=== PATIENT | male | born 1975 | race Two or more races ===

== ENCOUNTER 2022-05-17 12:06 | Emergency (ER) | payer OTHER, SELFPAY ==
--- NOTE | ~2022-05-17 | XR_ITS ---
EXAMINATION: XR CHEST CLINICAL INFORMATION: Wheezing/coughing with shortness of breath COMPARISON: None TECHNIQUE: 2 views of the chest were obtained. FINDINGS: No significant abnormality is noted involving the heart, lungs, mediastinum, bony thorax or soft tissues. XR/XR chest 2V IMPRESSION: Unremarkable examination.
[2022-05-17 12:10] VITALS: BP 136/90; PULSE 85; RESP 24; TEMP 36.6; O2SAT 94; BMI 51.7
[2022-05-17 13:28] LABS: COVID-19 Test Negative (Negative); IDNOW Serial# 9DB6401D; Influenza A Negative (Negative); Influenza B2 Negative (Negative)
--- NOTE | 2022-05-17 13:29 | ED_ITS ---
HPI - SOB/Dyspnea General Chief Complaint: Dyspnea Stated Complaint: ashtma Time Seen by Provider: 05/17/22 12:49 Source: patient and family Mode of arrival: ambulatory Limitations: no limitations and language barrier History of Present Illness HPI Narrative: 46-year-old male with a history of [id number] diabetes, asthma here with 3 days of cough and wheezing. No fevers, chills, chest pain, leg swelling leg pain. Patient does report shortness of breath with his coughing. Patient is using his albuterol home with continued symptoms. Patient had 2 COVID vaccination Related Data Previous Rx's Medication Instructions Recorded albuterol sulfate 2.5 mg (3 mL) inhalation Q4H PRN 05/17/22 shortness of breath or wheezing #90 mL nebulizers (Aeroneb Go Nebulizer) #1 ea 05/17/22 prednisone 20 mg tablet 20 mg PO DAILY #7 tabs 05/17/22 Allergies Allergy/AdvReac Type Severity Reaction Status Date / Time No Known Allergies Allergy Unverified 08/13/20 18:28 Review of Systems Review of Systems: Yes all other systems are reviewed and are negative Constitutional: Constitutional: Reports no additional constitutional complaints, Denies body ache(s), Denies chills, Denies fever(s), Denies headache(s) and Denies weakness Eyes: Eyes: Reports no additional eye complaints and Denies change in vision ENT: Reports system reviewed and no additional complaints, except as documented, Denies dizziness, Denies headache(s), Denies nasal congestion, Denies nasal discharge and Denies neck pain Cardiovascular: Cardiovascular: Reports no additional cardiovascular complaints, Denies chest pain, Denies leg edema and Reports dyspnea Respiratory: Respiratory: Reports no additional respiratory complaints, Reports cough, Reports dyspnea and Reports wheezing Gastrointestinal: Gastrointestinal: Reports no additional gastrointestinal complaints, Denies abdominal pain, Denies diarrhea, Denies nausea and Denies vomiting Genitourinary: Genitourinary: Denies urinary incontinence Musculoskeletal: Musculoskeletal: Reports no additional musculoskeletal complaints, Denies back pain, Denies arthralgias, Denies joint swelling, Denies neck pain, Denies numbness and Denies tingling Integumentary/Breasts: Skin/Breast: Reports system reviewed and no additional complaints, except as docu and Denies rash Neurologic: Reports system reviewed and no additional complaints, except as documented, Denies Abnormal speech present, Denies dizziness, Denies headache(s), Denies numbness, Denies tingling and Denies weakness Allergic/Immunologic: Allergic/Immunologic: Reports wheezing PMFSH Past Medical History Attestation statement: The following information was validated with the patient. Source: old records reviewed and nursing notes reviewed Social History Social History Advance Directives: No Advance Directives Information Provided: Yes Physical Exam Vital Signs: Vital Signs: Last Vital Signs Temp 98 F 05/17/22 12:10 Pulse 88 05/17/22 14:14 Resp 18 05/17/22 14:14 BP 127/85 05/17/22 14:14 Pulse Ox 99 05/17/22 15:23 O2 Del Method 05/17/22 15:23 BMI result Body Mass Index 51.7 Const: General: cooperative, healthy appearing, comfortable and no acute distress Orientation/consciousness: patient oriented x3 Limitations: no limitations HEENT: Head: Yes normal to inspection Ears: hearing grossly normal bilaterally and TM's normal bilaterally General nose exam: Normal external nose present Face and sinus: Yes normal facial exam Mouth: Normal oral and palatal mucosa present Throat: Yes posterior oropharynx normal, Yes tonsils normal and Yes uvula midline Eyes: General: appearance normal, both eyes and all related structures Pupils: Equal, round and reactive pupils present Neck: Neck: Yes normal visual inspection, Yes full ROM, Yes no lymphadenopathy and Yes no meningeal signs Chest: Chest palpation & inspection: normal inspection of the chest Resp: Other: Expiratory wheezing throughout Effort & Inspection: normal respiratory effort Cardio: Rate: regular rate Rhythm: regular rhythm Peripheral pulses: Peripheral pulses 2+ throughout GI: Inspection: Yes normal to inspection Palpation (GI): Soft to palpation and nontender Auscultation: normal bowel sounds Back/Spine/Pelvis: Thoracic/Lumbar Spine: thoracic and lumbar spine normal to inspection Skin: General skin exam: no rashes or lesions noted Neuro: General: patient oriented x3, no meningeal signs, no focal motor deficits and normal sensation to monofilament Cranial nerves: Yes Equal, round and reactive pupils present Cognition (Neuro): normal cognition Speech: No Abnormal speech present Gait exam (Neuro): Normal gait present Motor exam (neuro): 5/5 motor strength present throughout Extrem: General: Yes normal to inspection Course Course Course Narrative: Chest x-ray shows no acute finding. Flu and COVID testing are negative. I re- examined the patient post DuoNeb. He has a mild expiratory wheezing in the bases but overall is improved. His oxygen saturation 99% on room air. I will send him home with albuterol. I will also send with a low-dose prednisone. He is aware he needs to check his blood sugars all being on prednisone it may cause his blood sugar to be elevated. Reviewed worrisome signs and symptoms of when to return to the emergency department. Comfortable discharge home. MDM - SOB/Dyspnea MDM Narrative Medical decision making narrative: This is a 46-year-old male with a known history of asthma here with cough and wheezing for 3 days unrelieved with home albuterol. On arrival patient has expiratory wheezing throughout. Is mild tachypnea and oxygen saturations are 93-94%. This is from chronic lung disease and not infection. Will check COVID and flu testing, chest x-ray. Will give DuoNeb and reassess Differential Diagnosis Differential diagnosis: Likely asthma with exacerbation Medical Records Attestation: I reviewed the patient's medical records. Lab Data Attestation: I reviewed the patient's lab results. Labs: Lab Results 05/17/22 05/17/22 Range/Units 13:02 13:02 COVID-19 (SRINATH) Negative (Negative) COVID-19 Clin Com See Note Influenza Type A (SOBIA) Negative (Negative) Influenza Type B (SOBIA) Negative (Negative) Influenza A & B Note See Note Imaging Data Chest x-ray: Attestation: I personally reviewed and interpreted this imaging study as follows: Radiologist's impression: cc: Kortney Morley MUSICAL INSTRUMENT SUPERVISOR~ EXAMINATION: XR CHEST CLINICAL INFORMATION: Wheezing/coughing with shortness of breath COMPARISON: None TECHNIQUE: 2 views of the chest were obtained. FINDINGS: No significant abnormality is noted involving the heart, lungs, mediastinum, bony thorax or soft tissues. XR/XR chest 2V IMPRESSION: Unremarkable examination. Discharge Plan Discharge Clinical Impression: Asthma with exacerbation Patient Disposition: Home, Self-Care Instructions: Asthma (ED) Additional Instructions: Be aware that taking prednisone will cause your blood sugar to be elevated. Please check your blood sugar daily. Comes to the emergency room if your blood sugar is greater than 400 Continue your home medication Testing for flu and COVID are negative Chest x-ray is normal Prescriptions: New prednisone 20 mg tablet 20 mg PO DAILY Qty: 7 0RF (DME) Aeroneb Go Nebulizer Misc See Rx Instructions .Route Qty: 1 0RF Rx Instructions: As directed albuterol sulfate 2.5 mg /3 mL (0.083 %) solution for nebulization 2.5 mg inhalation Q4H PRN (Reason: shortness of breath or wheezing) Qty: 90 0RF Referrals: Mylene Jasso MD [Primary Care Provider] - 1 week Interventions: ED Discharge Assessment Last Done: 05/17/22 15:36 Discharge Date/Time: 05/17/22 15:36 Print Language: Setswana
[2022-05-17 13:38] VITALS: PULSE 77; RESP 16; O2SAT 98
[2022-05-17] MEDS: Albuterol/Iprat 2.5/0.5MG 3 ML AMPUL.NEB INHALE (13:38)
[2022-05-17 14:14] VITALS: BP 127/85; PULSE 88; RESP 18; O2SAT 92
[2022-05-17 15:23] VITALS: O2SAT 99
== END 2022-05-17 15:36 | disposition home or self-care (01) ==
PROVIDERS: Nurse Practitioner Family; Emergency Provider Emergency Medicine; PCP Student in an Organized Health Care Education/Training Program
DX: J45.901 Unspecified asthma with (acute) exacerbation (principal); R06.00 Dyspnea, unspecified; E11.9 Type 2 diabetes mellitus without complications; R05.9 Cough, unspecified; Z79.4 Long term (current) use of insulin; Z20.822 Contact with and (suspected) exposure to COVID-19; Z79.899 Other long term (current) drug therapy
CPT/HCPCS: 71046; 87502; 87635; 94640; 99284

== ENCOUNTER 2023-12-07 09:30 | Emergency (ER) | payer OTHER, SELFPAY ==
[2023-12-07 09:37] VITALS: BP 178/105; PULSE 83; RESP 19; TEMP 36.6; O2SAT 96; BMI 48.8
--- NOTE | 2023-12-07 10:16 | ED_ITS ---
HPI - Dental/Oral General Chief complaint: Dental/Oral Stated complaint: dental pain Time Seen by Provider: 12/07/23 09:57 Source: patient Mode of arrival: ambulatory Limitations: no limitations History of Present Illness HPI Narrative: 47 year old male with pmhx significant for asthma presents to the ED today for evaluation of dental pain x2 days. Pain is isolated to the right upper molar. Describes pain as a stabbing sensation. Pain radiates down right neck. Has not taken anything for pain at home. Denies fever, chills, difficulty swallowing or speaking, discharge from the tooth. Has not seen a dentist in years. Related Data Previous Rx's Medication Instructions Recorded albuterol sulfate 2.5 mg/3 mL 2.5 mg (3 mL) inhalation Q4H PRN 05/17/22 (0.083 %) solution for nebulization shortness of breath or wheezing #90 mL nebulizers (Aeroneb Go Nebulizer) #1 ea 05/17/22 prednisone 20 mg tablet 20 mg PO DAILY #7 tabs 05/17/22 amoxicillin 875 mg-potassium 1 tab PO BID 14 days #28 tabs 12/07/23 clavulanate 125 mg tablet hydrocodone 5 mg-acetaminophen 325 1 tab PO BEDTIME PRN pain (scale 12/07/23 mg tablet score 7-10) #3 tabs naproxen 500 mg tablet 500 mg PO Q8-12H PRN pain (scale 12/07/23 score 4-6) #20 tabs ondansetron 4 mg disintegrating 4 mg PO DAILY PRN nausea and 12/07/23 tablet vomiting 5 days #10 tabs Allergies Allergy/AdvReac Type Severity Reaction Status Date / Time No Known Allergies Allergy Verified 12/07/23 09:37 Review of Systems Review of Systems: Constitutional: No fever, chills, fatigue, night sweats, weight changes ENT/Mouth: No ear pain, hearing loss, nasal congestion, sinus pain, rhinorrhea, No sore throat, odynophagia, dysphagia, +dental pain Eyes: No eye pain, swelling, redness, vision changes, discharge Cardio: No chest pain, palpitations, MILLER, orthopnea, peripheral edema Pulm: No SOB, cough, sputum, wheezing, dyspnea, hemoptysis GI: No nausea, vomiting, hematemesis, abdominal pain, diarrhea, constipation, hematochezia, melena : No irregular bleeding, dysuria, frequency, urgency, hesitancy, hematuria, flank pain MSK: No back pain, neck pain, joint pain, myalgias Skin: No lesions, rashes Neuro: No weakness, numbness, paresthesias, LOC, dizziness, headache All other systems reviewed and are negative. [facility] Past Medical History Attestation statement: The following information was validated with the patient. Source: old records reviewed and nursing notes reviewed Onset Date is defined in the Problem List Problems that require an onset date and time if occurred within 24 hrs of arrival to the ED Aortic Dissection and Rupture; Neurologic impairment; Cardiopulmonary Arrest; Endotracheal Intubation; Insertion or Replacement of Mechanical Circulatory Assist Device Social History Social History Advance Directives: No Physical Exam Vital Signs: Vital Signs: Last Vital Signs Temp 98 F 12/07/23 09:37 Pulse 83 12/07/23 09:37 Resp 19 12/07/23 09:37 BP 178/105 H 12/07/23 09:37 Pulse Ox 96 12/07/23 09:37 O2 Del Method Room Air 12/07/23 09:37 BMI result Body Mass Index 48.8 Patient hypertensive to 178/105 likely secondary to pain. Vitals otherwise WNL. Const: Other: + rocking back and forth on chair in karmen n General: cooperative, healthy appearing, no acute distress, alert and awake Nutritional Appearance: obese Orientation/consciousness: patient oriented x3 Limitations: no limitations HEENT: Other: + No facial edema. Tongue and lips wnl + multiple dental caries and poor dentit ion. right upper 2nd and 3rd molar with localized periapical swelling to the buccal and lingual ginginva. No obvious abscess. No pointing. No active bleeding/ discharge. TTP. No palpable fluctuance. + No edema to buccal mucosa + Posterior oropharynx without erythema/ edema. Uvula midline. Controlling secretions and speaking in complete sentences + No submandublar or submental LAD + No cervical LAD Head: Yes normal to inspection, Yes normocephalic and Yes atraumatic Ears: hearing grossly normal bilaterally, external ears normal, TM's normal bilaterally, EAC's normal, mastoids normal and no periauricular adenopathy General nose exam: Normal external nose present and No nasal discharge present Face and sinus: Yes normal facial exam and Yes sinuses nontender Eyes: General: appearance normal, both eyes and all related structures Pupils: Equal, round and reactive pupils present Neck: Neck: Yes normal visual inspection and Yes full ROM Resp: Effort & Inspection: normal respiratory effort and able to speak in complete sentences Auscultation: clear to auscultation bilaterally Cardio: Rate: regular rate Rhythm: regular rhythm Skin: General skin exam: no rashes or lesions noted Neuro: General: patient oriented x3, gait normal and moves all extremities Cranial nerves: Yes Equal, round and reactive pupils present Extrem: General: Yes normal to inspection Course Course Course Narrative: Patient has suspected dental infection of the 2nd and 3rd right upper molars. There are no signs of abscess or palpable fluctuance that would warrant drainage. There is no concerns for Thony's angina and imaging is not warranted at this time as it would not frame changer. He is afebrile. Will give him a dose of Toradol in the ED today. Will send him home with Augmentin, naproxen and 3 tabs of [place] for pain control as we are out of lolicaine. 1025-- he reports pain improvement with Toradol. He is no longer rocking back and forth in pain. Patient has remained stable throughout ED visit today. Discussed worrisome signs symptoms of when to return to the ED. Provided patient with list of dentists to call today and stressed importance of making an appointment. All questions answered at this time. Patient is agreeable with disposition and stable for discharge. Medications Administered Discontinued Medications Generic Name Dose Route Start Last Admin Trade Name Napoleonq PRN Reason Stop Dose Admin Ketorolac Tromethamine 60 mg 12/07/23 10:14 12/07/23 10:17 Ketorolac Tromethamine 60 Mg/2 Ml Vial IM 12/07/23 10:15 60 mg ONCE ONE Administration Medical Decision Making Medical Decision Making [facility] Narrative: 47-year-old male with pmhx significant for asthma presents to the ED today for evaluation of dental pain x2 days. Vital signs notable for hypertension, otherwise WNL. Afebrile. Nontoxic appearing in no acute distress. Rocking back and forth in exam chair due to pain. On exam there are multiple dental caries and poor dentition. right upper 2nd and 3rd molar with localized periapical swelling to the buccal and lingual ginginva. No obvious abscess. No pointing. No active bleeding/ discharge. TTP. No palpable fluctuance. No edema to buccal mucosa. Posterior oropharynx without erythema/edema. Uvula midline. Airway patent. Controlling secretions and speaking in complete sentences. No cervical, submandublar or submental LAD. Clinical concern for dental/ periapical abscess/infection, apthous stomatitis. Unlikely mono, herpes, sialadenitis, sialolithiasis, METERS SUPERINTENDENT, retropharyngeal abscess, deep neck infection, osteomyelitis, facial cellulitis/ abscess, lymphoma, ludwigs angina Differential Diagnosis Differential Diagnoses: The differential diagnosis associated with the p resentation includes as above. Admission/Observation Not indicated External Record Review External record reviewed: Inpatient record Tests considered The following testing was considered but not selected: I considered obtaining CT facial bones however no visible or palpable abscess, no extension into neck, not warranted at this time. Prescription Management I considered prescription management with: Pain Medication and Antibiotic Chronic Conditions Patient?s care impacted by: Other (Dental bharati) Social Determinants Patient?s care significantly limited by Social Determinants of Health including: Other Social Determinant of Health Critical Care Time Critical Care Time Critical Care Time: No Discharge Plan Discharge Clinical Impression: Dental caries, Toothache Patient Disposition: Home, Self-Care Instructions: Toothache (ED), Tooth Extraction (DC) Additional Instructions: You have a dental infection of your upper molar. Augmentin is an antibiotic that has been sent to your pharmacy. Take this as directed over the next 14 days. Do not skip any doses or finish she has early as may cause infection to worsen or return. Naproxen is a pain medication that has been sent to your pharmacy. Take this as needed for dental pain. Do not take this with other NSAIDs such as ibuprofen as this may cause increased risk of GI bleed. [place] is a narcotic pain medication has been sent to your pharmacy. Take this only as needed for severe pain. YOU NEED TO FOLLOW UP WITH A DENTIST THIS WEEK. YOU HAVE BEEN AND WITH CONTACT INFORMATION. YOU NEED TO CALL THEM. THEY WILL NOT CALL YOU. If you began having difficulty swallowing or feel as though your symptoms are worsening despite treatment. The case of emergency call 911. Prescriptions: New amoxicillin-pot clavulanate 875-125 mg tablet 1 tab PO BID 14 Days Qty: 28 0RF hydrocodone-acetaminophen 5-325 mg tablet 1 tab PO BEDTIME PRN (Reason: pain (scale score 7-10)) Qty: 3 0RF Rx Instructions: Partial Fill upon patient request. naproxen 500 mg tablet 500 mg PO Q8-12H PRN (Reason: pain (scale score 4-6)) Qty: 20 0RF ondansetron 4 mg tablet,disintegrating 4 mg PO DAILY PRN (Reason: nausea and vomiting) 5 Days Qty: 10 0RF No Action prednisone 20 mg tablet 20 mg PO DAILY Qty: 7 0RF (DME) Aeroneb Go Nebulizer Misc See Rx Instructions .Route Qty: 1 0RF Rx Instructions: As directed albuterol sulfate 2.5 mg /3 mL (0.083 %) solution for nebulization 2.5 mg inhalation Q4H PRN (Reason: shortness of breath or wheezing) Qty: 90 0RF Referrals: Rajat Soto, ABRAHAM [Dentist] - Ney Barajas, ABRAHAM [Dentist] - Adelaida Thibodeaux, ABRAHAM [Dentist] - Carlos Baez, DMD [Physician] - Mathew Norman DDS [Physician] - Colin Forbes, ABRAHAM [Dentist] - Dariel Bliss, ABRAHAM [Physician] - Haile Cast MD [Physician] - Stand Alone Forms: Work/School Release Interventions: ED Discharge Assessment Last Done: 12/07/23 10:33 Discharge Date/Time: 12/07/23 10:35
[2023-12-07] MEDS: Ketorolac Tromethamine 60 MG/2 ML VIAL IM (10:17)
== END 2023-12-07 10:35 | disposition home or self-care (01) ==
PROVIDERS: Emergency Provider Emergency Medicine
DX: K02.9 Dental caries, unspecified (principal); K08.89 Other specified disorders of teeth and supporting structures; I10 Essential (primary) hypertension
CPT/HCPCS: 96372; 99283; 99284; J1885

== ENCOUNTER 2025-07-12 11:48 | Emergency (ER) | payer OTHER, SELFPAY ==
--- NOTE | ~2025-07-12 | XR_ITS ---
CLINICAL HISTORY: left shoulder pain x 3 weeks 4 view left shoulder Comparison: None provided Findings: Bones intact. No dislocations. Minor arthritic changes. No significant degenerative spurring. No erosions. No radiopaque foreign body. IMPRESSION: No acute fracture or dislocation. This document has been electronically signed by: Gemma Cadena DO on 07/12/2025 13:30:41
[2025-07-12 11:50] VITALS: BP 151/93; PULSE 83; RESP 16; TEMP 36.4; O2SAT 94; BMI 39.5
--- NOTE | 2025-07-12 11:52 | ED.UPPEXIN ---
HPI - Extremity Injury (Upper) General Chief Complaint: Extremity Injury, Upper Stated Complaint: l shoulder pain Time Seen by Provider: 07/12/25 12:07 Source: patient and RN notes reviewed Mode of arrival: ambulatory Limitations: no limitations History of Present Illness ED Provider: Marisol Davis PA-C HPI narrative: This is a [id number], with a past medical history of diabetes and asthma, who presents to the ER with complaints of left shoulder pain x 3 weeks. Reports that he was on vacation in [place] and was swimming a lot in the next day he felt pain in his left shoulder. He states that the pain has been constant, worsens with movement and with palpation. He has been taking Tylenol for his symptoms which has provided him with limited relief. States that he previously injured his left shoulder while playing baseball when he was younger however this self-resolved temp without any intervention or follow-up. Denies any chest pain or shortness of breath. Denies any other complaints or concerns at this time. MD complaint: injury to: left and shoulder Onset (ago): week(s) Other injuries: none Handedness: right Relieving factors: none Exacerbating factors: none Context: injury Related Data Previous Rx's ?Medication ?Instructions ?Recorded albuterol sulfate 2.5 mg/3 mL 2.5 mg (3 mL) inhalation Q4H PRN 05/17/22 (0.083 %) solution for nebulization shortness of breath or wheezing #90 mL nebulizers (Aeroneb Go Nebulizer) #1 ea 05/17/22 prednisone 20 mg tablet 20 mg PO DAILY #7 tabs 05/17/22 amoxicillin 875 mg-potassium 1 tab PO BID 14 days #28 tabs 12/07/23 clavulanate 125 mg tablet hydrocodone 5 mg-acetaminophen 325 1 tab PO BEDTIME PRN pain (scale 12/07/23 mg tablet score 7-10) #3 tabs naproxen 500 mg tablet 500 mg PO Q8-12H PRN pain (scale 12/07/23 score 4-6) #20 tabs ondansetron 4 mg disintegrating 4 mg PO DAILY PRN nausea and 12/07/23 tablet vomiting 5 days #10 tabs naproxen 500 mg tablet 500 mg PO BID 7 days #14 tabs 07/12/25 Allergies Allergy/AdvReac Type Severity Reaction Status Date / Time No Known Allergies Allergy Verified 07/12/25 11:53 Review of Systems Review of Systems: Yes all other systems are reviewed and are negative Constitutional: Constitutional: Reports as per [facility] Past Medical History Attestation statement: The following information was validated with the patient. Social History Social History Advance Directives: No Advance Directives Information Provided: Yes Physical Exam Vital Signs: Vital Signs: Last Vital Signs Temp 97.6 F 07/12/25 11:50 Pulse 83 07/12/25 11:50 Resp 16 07/12/25 11:50 BP 151/93 H 07/12/25 11:50 Pulse Ox 94 07/12/25 11:50 O2 Del Method Room Air 07/12/25 11:50 BMI result Body Mass Index 39.5 Const: General: cooperative, comfortable and no acute distress Orientation/consciousness: patient oriented x3 Limitations: no limitations HEENT: Head: Yes normal to inspection, Yes normocephalic and Yes atraumatic Ears: hearing grossly normal bilaterally General nose exam: Normal external nose present Face and sinus: Yes normal facial exam Mouth: Normal oral and palatal mucosa present, oropharynx normal and moist mucous membranes Throat: Yes posterior oropharynx normal Eyes: General: appearance normal, both eyes and all related structures Eyelids: Yes eyelids normal Conjunctivae: conjunctivae normal Sclerae: sclerae normal Pupils: Equal, round and reactive pupils present EOM: EOMs intact bilaterally Neck: Neck: Yes normal visual inspection, Yes full ROM and Yes no lymphadenopathy Lymphatic: no lymphadenopathy noted Chest: Chest palpation & inspection: normal inspection of the chest Resp: Effort & Inspection: normal respiratory effort and able to speak in complete sentences Auscultation: clear to auscultation bilaterally, no crackles, no rales, no rhonchi and no wheezes Cardio: Rate: regular rate Rhythm: regular rhythm Heart sounds: S1 normal heart sound present and S2 normal heart sound present GI: Inspection: Yes normal to inspection Skin: General skin exam: no rashes or lesions noted Trauma: no lacerations or abrasions Wounds: no wounds Neuro: General: patient oriented x3 and moves all extremities Cranial nerves: Yes Equal, round and reactive pupils present Extrem: Other: Left shoulder with diffuse tenderness throughout pain with abduction to approximally 90?, strong radial pulse. Negative lift-off, negative drop-arm, positive empty can test sensation intact. General: Yes normal to inspection Right upper extremity: normal to inspection Left upper extremity: normal to inspection Right lower extremity: normal to inspection Left lower extremity: normal to inspection Course Course Course Narrative: Kortney Green ARTIST'S REPRESENTATIVE 07/12 1152 This is a rapid medical exam. Deferred additional HPI, ROS, PE to primary provider. 49 yo male with PMH of asthma, HTN, DM, right hand dominant here with complaints of left shoulder pain x 3 weeks which he noticed after swimming with his children. Will obtain x-rays. VSS Medications Administered Discontinued Medications Generic Name Dose Route Start Last Admin Trade Name Freq PRN Reason Stop Dose Admin Ibuprofen 600 mg 07/12/25 12:41 07/12/25 13:08 Ibuprofen 600 Mg Tablet PO 07/12/25 12:42 600 mg ONCE ONE Administration Medical Decision Making Medical Decision Making [facility] Narrative: This is a 49-year-old male who presents emergency department with concerns of left shoulder pain which started 3 weeks ago. On arrival, patient mildly hypertensive at 141/93, all other vital signs within normal limits. He is speaking full sentences under no distress. No chest pain or shortness of breath. Pain started after swimming on vacation. Will medicate with ibuprofen 600 mg by mouth, and obtain x-ray to rule out any bony abnormalities. Differential diagnoses include fracture, contusion, arthritis, rotator cuff injury, ligament injury. 1:39 PM 07/12/2025 (Marisol Davis PA-C): X-rays reviewed, no acute findings, mild arthritic changes noted. Discussed findings with patient. Discharged on naproxen, advised follow-up with the rn orthopedic for further management and treatment. Given strict return precautions. Patient understands and agrees with plan. Patient stable for discharge. Differential Diagnosis Differential Diagnoses: The differential diagnosis associated with the presentation includes See above Admission/Observation Consideration of admission/observation: Escalation of care including admission/observation considered Radiology Impression Discussion of test interpretation with radiology: I have reviewed the radiologist's reading. Radiologist Impression: Findings: Bones intact. No dislocations. Minor arthritic changes. No significant degenerative spurring. No erosions. No radiopaque foreign body. IMPRESSION: No acute fracture or dislocation. This document has been electronically signed by: Gemma Cadena DO on 07/12/2025 13:30:41 Dictated By: Gemma Cadena MD Discharge Plan Discharge Clinical Impression: Left shoulder strain Patient Disposition: Home, Self-Care Instructions: Shoulder Sprain (ED), Shoulder Pain (ED) Additional Instructions: You were seen in the ER for shoulder pain. Your x-rays show mild arthritic changes, otherwise no broken bones seen. X-rays only show bones, they do not show ligaments or tendons therefore you should follow-up with the rn orthopedic for further management and evaluation of your shoulder pain. Please call the Orthopedics on Monday. Take prescribed medication as directed, please be advised that naproxen she will be taken twice a day for the next 7 days. You may take Tylenol on top of this for pain management. Gentle stretching, heat or ice, massage can also help your symptoms. If any new or worsening symptoms occur including but not limited to severe chest pain or shortness of breath, please seek emergent care. Prescriptions: New naproxen 500 mg tablet 500 mg PO BID 7 Days Qty: 14 0RF No Action prednisone 20 mg tablet 20 mg PO DAILY Qty: 7 0RF (DME) Aeroneb Go Nebulizer [facility] [place], [place] See Rx Instructions .Route Qty: 1 0RF Rx Instructions: As directed albuterol sulfate 2.5 mg /3 mL (0.083 %) solution for nebulization 2.5 mg inhalation Q4H PRN (Reason: shortness of breath or wheezing) Qty: 90 0RF amoxicillin-pot clavulanate 875-125 mg tablet 1 tab PO BID 14 Days Qty: 28 0RF hydrocodone-acetaminophen 5-325 mg tablet 1 tab PO BEDTIME PRN (Reason: pain (scale score 7-10)) Qty: 3 0RF Rx Instructions: Partial Fill upon patient request. naproxen 500 mg tablet 500 mg PO Q8-12H PRN (Reason: pain (scale score 4-6)) Qty: 20 0RF ondansetron 4 mg tablet,disintegrating 4 mg PO DAILY PRN (Reason: nausea and vomiting) 5 Days Qty: 10 0RF Referrals: [facility] [facility] [Provider Group] Print Language: Amharic
--- NOTE | 2025-07-12 12:53 | PC.NURSE ---
Patient is a [id number]-male, with a past medical history of diabetes and asthma, who presents to the ER with complaints of left shoulder pain x 3 weeks. Reports that he was on vacation in [place] and was swimming a lot in the next day he felt pain in his left shoulder. He states that the pain has been constant, worsens with movement and with palpation. Alert and oriented. Respirations even and non-labored. Abdomen soft, non-tender with positive bowel sounds. c/o left shoulder pain increasing with movement.
[2025-07-12 13:56] VITALS: BP 151/93; PULSE 83; RESP 16; TEMP 36.4; O2SAT 94
== END 2025-07-12 13:57 | disposition home or self-care (01) ==
PROVIDERS: Emergency Provider Emergency Medicine
DX: S43.402A Unspecified sprain of left shoulder joint, initial encounter (principal); X58.XXXA Exposure to other specified factors, initial encounter; Y93.9 Activity, unspecified; Y92.9 Unspecified place or not applicable; Y99.9 Unspecified external cause status; M25.512 Pain in left shoulder; E11.9 Type 2 diabetes mellitus without complications; J45.909 Unspecified asthma, uncomplicated
CPT/HCPCS: 73030; 99283; 99284

== ENCOUNTER → 2025-07-12 11:52 | Outpatient (BNV) | payer OTHER, SELFPAY | PROVIDERS: Emergency Provider Emergency Medicine; Visit Provider Radiology Diagnostic Radiology | DX: M25.512 Pain in left shoulder (principal) | CPT/HCPCS: 73030 ==